=== PATIENT | male | born 1980 | race Caucasian/White ===

== ENCOUNTER 2021-02-11 14:46 | Emergency (ER) | payer OTHER ==
[2021-02-11 15:11] VITALS: BP 114/74; PULSE 80; TEMP 97.8; BMI 33.4
[2021-02-11] MEDS ORDERED: KETOROLAC TROMETHAMINE 30 MG/1 ML VIAL IM ONE (16:45)
== END 2021-02-11 17:42 | disposition home or self-care (01) ==
LOC: JERFT 14:46 → JER 14:46 → JERFT 17:42
PROC: 3E0233Z Introduction of Anti-inflammatory into Muscle, Percutaneous Approach (ICD-10-PCS; principal; 2021-02-11)
DX: M54.32 Sciatica, left side (principal)
CPT/HCPCS: 96372; 99284-25